=== PATIENT | male | born 1950 | race Asian ===

== ENCOUNTER 2016-10-04 15:23 | Emergency (ER) | payer MEDICARE, OTHER ==
[2016-10-04 15:39] VITALS: BP 141/85
== END 2016-10-04 18:43 | disposition left against medical advice (07) ==
LOC: ED 15:23
DX: R11.2 Nausea with vomiting, unspecified (principal); R19.7 Diarrhea, unspecified; Z53.21 Procedure and treatment not carried out due to patient leaving prior to being seen by health care provider